=== PATIENT | male | born 1980 | race Caucasian/White ===

== ENCOUNTER 2020-02-01 13:13 | Emergency (ER) | payer MEDICARE, MEDICAID ==
[~2020-02-01] VITALS: Ht 182.9 cm; Wt 86.5 kg
[~2020-02-01 13:13] MED LIST: OLAN10TA3 PO
[2020-02-01 13:25] VITALS: BP 122/74
--- NOTE | 2020-02-01 13:30 | NUR ---
PT AMBULATORY TO & FROM ([facility] BR PRIIOR TO TRIAGE; NO URINE SPECIMEN PROVIDED. PER LEGAL HOLD DOCUMENT: "DISORGANIZED, RAMBLING, TANGENTIAL, DELUSIONAL" HAS BEEN TAKING SEROQUEL 50MG QPM, ZYPREXA 15MG BID. "UNABLE TO IDENTIFY WHERE TO GET FOOD & HOUSING" "UNABLE TO CARE FOR HIMSELF DUE TO MENTAL ILLNESS".
--- NOTE | 2020-02-01 13:37 | NUR ---
ROOM WAS SECURED PRIOR TO PT TRIAGE. SITTER OUTSIDE ROOM.
[2020-02-01] MEDS ORDERED: OLAN15TA3 PO (13:49)
[2020-02-01] MEDS ORDERED: QUET50TA5 PO (13:49)
--- NOTE | 2020-02-01 14:00 | NUR ---
ZARIA VILLARREAL AT FOR CONSULT.
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
== END 2020-02-01 14:40 | disposition home or self-care (01) ==
LOC: ED 13:30
DX: Z00.00 Encounter for general adult medical examination without abnormal findings (principal)
CPT/HCPCS: 99283

== ENCOUNTER 2020-04-22 05:58 | Day surgery (SDC) | payer MEDICARE, MEDICAID ==
[~2020-04-22] VITALS: Ht 182.9 cm; Wt 62.7 kg
[~2020-04-22 05:58] MED LIST changes: +OLAN15TA3 PO; +QUET50TA5 PO
[2020-04-22] MEDS ORDERED: MELATONIN PO (07:26)
[2020-04-22] MEDS ORDERED: VISTARIL PO (07:26)
[2020-04-22 07:28] VITALS: BP 120/80
[2020-04-22] MEDS ORDERED: LACTATED RINGERS 1,000 ML IV SCH (07:30)
[2020-04-22] MEDS ORDERED: CHLORHEXIDINE 15 ML UDC MM ONE (07:30)
[2020-04-22] MEDS ORDERED: MIDAZOLAM 1 MG/ML, 2ML ONE (09:23)
[2020-04-22] MEDS ORDERED: FENTANYL PF 250 MCG/5ML ONE (09:24)
[2020-04-22] MEDS ORDERED: DEXAMETHASONE 4 MG/ML, 1ML ONE (11:29)
[2020-04-22] MEDS ORDERED: PROPOFOL 10 MG/ML, 20ML ONE (11:29)
[2020-04-22] MEDS ORDERED: CEFAZOLIN 1,000 MG ONE (11:29)
[2020-04-22] MEDS ORDERED: ONDANSETRON 2MG/ML, 2ML ONE (11:29)
[2020-04-22] MEDS ORDERED: PROMETHAZINE 25 MG/ML, 1ML IVPush PRN (12:00)
[2020-04-22] MEDS ORDERED: DIAZEPAM 5 MG/ML, 2ML IVPush PRN (12:00)
[2020-04-22] MEDS ORDERED: MEPERIDINE/PF 25MG/0.5ML IVPush PRN (12:00)
[2020-04-22] MEDS ORDERED: ACETAMINOPHEN 325 MG TABLET PO PRN (12:00)
[2020-04-22] MEDS ORDERED: FENTANYL PF 100 MCG/2ML IV PRN (12:00)
[2020-04-22] MEDS ORDERED: OXYcodone 5 MG/5 ML ORAL.SOL UDC PO PRN (12:00)
[2020-04-22] MEDS ORDERED: DIPHENHYDRAMINE 50 MG/ML, 1ML IVPush PRN (12:00)
[2020-04-22] MEDS ORDERED: ONDANSETRON 2MG/ML, 2ML IVPush PRN (12:00)
[2020-04-22] MEDS ORDERED: HYDROmorphone 1 MG/ML, 1ML INJ IVPush PRN (12:00)
== END 2020-04-22 14:15 | disposition home or self-care (01) ==
LOC: OUT 05:58
PROVIDERS: ATTEND Surgery Surgery of the Hand
DX: S63.284A Dislocation of proximal interphalangeal joint of right ring finger, initial encounter (principal); F12.90 Cannabis use, unspecified, uncomplicated; F17.210 Nicotine dependence, cigarettes, uncomplicated; X58.XXXA Exposure to other specified factors, initial encounter; Y93.89 Activity, other specified; Y92.89 Other specified places as the place of occurrence of the external cause; Y99.8 Other external cause status; Z20.828 Contact with and (suspected) exposure to other viral communicable diseases; Z88.0 Allergy status to penicillin; Z72.89 Other problems related to lifestyle; Z79.899 Other long term (current) drug therapy
CPT/HCPCS: 26860; 73140; 87635; C1713; J0690; J1100; J2250; J2405; J2704; J3010; J7120; 76000